=== PATIENT | male | born 1945 ===

== ENCOUNTER 2024-04-20 23:59 | Outpatient (REF) | payer MEDICARE, SELFPAY | END 2024-04-21 | disposition home or self-care (01) | LOC: HO.WMHL 23:59 | PROVIDERS: Visit Provider Nurse Practitioner Acute Care | DX: F03.90 Unspecified dementia, unspecified severity, without behavioral disturbance, psychotic disturbance, mood disturbance, and anxiety (principal); R50.9 Fever, unspecified; R00.0 Tachycardia, unspecified | CPT/HCPCS: 81001; 87086; 87088; 87186 ==